=== PATIENT | male | born 1970 | race Caucasian/White ===

== ENCOUNTER 2019-05-29 16:46 | Emergency (ER) | payer MEDICAID ==
[~2019-05-29] VITALS: Ht 185.4 cm; Wt 120.2 kg
[2019-05-29 18:50] VITALS: BP 147/102
[2019-05-29] MEDS ORDERED: HYDROcodone-ACET 10/325MG TAB PO ONE (19:15)
== END 2019-05-29 20:01 | disposition home or self-care (01) ==
LOC: ER 16:46
DX: S60.212A Contusion of left wrist, initial encounter (principal); X50.1XXA Overexertion from prolonged static or awkward postures, initial encounter; Y93.89 Activity, other specified; Y92.89 Other specified places as the place of occurrence of the external cause; Y99.8 Other external cause status
CPT/HCPCS: 73110

== ENCOUNTER 2019-10-14 09:34 | Emergency (ER) | payer MEDICAID ==
[~2019-10-14] VITALS: Ht 185.4 cm; Wt 120.2 kg
[2019-10-14 09:52] VITALS: BP 141/100
[2019-10-14] MEDS ORDERED: FLUORESCEIN SOD 1 MG TEST STRIP OP ONE (11:00)
[2019-10-14] MEDS ORDERED: TETRACAINE HCL 0.5% OPTH(EYE) SOLN 4ML EACHEYE ONE (11:00)
== END 2019-10-14 12:06 | disposition home or self-care (01) ==
LOC: ER 09:34
DX: T15.02XA Foreign body in cornea, left eye, initial encounter (principal); W22.8XXA Striking against or struck by other objects, initial encounter; Y93.89 Activity, other specified; Y92.89 Other specified places as the place of occurrence of the external cause; Y99.8 Other external cause status
CPT/HCPCS: 65222

== ENCOUNTER 2023-03-13 06:08 | Emergency (ER) | payer MEDICAID ==
[~2023-03-13] VITALS: Ht 185.4 cm; Wt 118.0 kg
[2023-03-13 06:20] VITALS: BP 151/99
[2023-03-13 06:38] LABS: Urine Bacteria NONE SEEN /hpf (None Seen); Urine Blood 1+ /uL (Negative); Urine Specific Gravity 1.008 (1.001-1.035); Urine WBC <1 /hpf (0 - 3)
[2023-03-13] MEDS ORDERED: SODIUM CHLORIDE 0.9% 1,000 ML IV ONE (07:00)
[2023-03-13] MEDS ORDERED: ONDANSETRON HCL 4 MG/2 ML VIAL IV ONE (07:00)
[2023-03-13] MEDS ORDERED: KETOROLAC TROMETH 30 MG/ML 1ML VIAL IV ONE (07:00)
[2023-03-13] MEDS ORDERED: SODIUM CHLORIDE 0.9% 1,000 ML IVB ONE (07:00)
[2023-03-13 08:03] LABS: Basophils # (auto) 0.1 10 ^3/uL (0-0.2); Eosinophils # (auto) 0.3 10 ^3/uL (0-0.8); Eosinophils % (auto) 3.7 % (0.0-7.0); Hematocrit 49.8 % (41.0-53.0); Hemoglobin 16.9 g/dL (13.5-17.5); Lymphocytes # (auto) 1.3 10 ^3/uL (0.4-5.4); Mean Corpuscular Hemoglobin 29.2 pg (28.0-32.0); Mean Corpuscular Volume 86.1 fL (80.0-100.0); Monocytes # (auto) 0.3 10 ^3/uL (0-1.3); Monocytes % (auto) 4.1 % (0.0-12.0); Neutrophils # (auto) 6.2 10 ^3/uL (1.6-8.6); Neutrophils % (auto) 75.2 % (37.0-80.0); Nucleated Red Blood Cells % 0.1 %; Red Blood Cells 5.79 10^6/uL (4.5-5.90); White Blood Cell 8.2 10^3/uL (4.4-10.8)
[2023-03-13 09:41] LABS: Albumin 3.4 g/dL (3.4-5.0); Calcium 9.2 mg/dL (8.5-10.1); Potassium 4.2 mmol/L (3.5-5.1)
[2023-03-13 09:43] LABS: BUN/Creatinine Ratio 10.9 (10.0-20.0)
[2023-03-13 09:45] LABS: Bilirubin, Total 0.3 mg/dL (0.2-1.0); Total Protein 7.4 g/dL (6.4-8.2)
== END 2023-03-13 07:50 | disposition left against medical advice (07) ==
LOC: ER 06:08
DX: R10.9 Unspecified abdominal pain (principal); Z87.442 Personal history of urinary calculi
CPT/HCPCS: 36415; 74176; 80053; 81001; 85025

== ENCOUNTER 2024-02-18 07:55 | Emergency (ER) | payer MEDICAID ==
[~2024-02-18] VITALS: Ht 185.4 cm; Wt 127.2 kg
[2024-02-18 08:32] VITALS: BP 186/104; PULSE 104; RESP 20; TEMP 100; O2SAT 99
[2024-02-18] MEDS ORDERED: PRED20TA2 PO (09:19)
[2024-02-18] MEDS ORDERED: IBUP-1455 PO (09:19)
[2024-02-18] MEDS ORDERED: VALA1TAB PO (09:19)
[2024-02-18] MEDS: KETOROLAC TROMETH 60MG/2ML VIAL IM ONE (09:21)
[2024-02-18] MEDS: DexAMETHasone SOD PHOS 10MG/1ML VIAL INJ IM ONE (09:21)
== END 2024-02-18 09:21 | disposition home or self-care (01) ==
LOC: ER 07:55
DX: B02.9 Zoster without complications (principal); Z87.442 Personal history of urinary calculi
CPT/HCPCS: 96372; 99284; J1100; J1885

== ENCOUNTER 2024-02-24 10:11 | Emergency (ER) | payer MEDICAID ==
[~2024-02-24] VITALS: Ht 185.4 cm; Wt 127.4 kg
[~2024-02-24 10:11] MED LIST: IBUP-1455 PO; PRED20TA2 PO; VALA1TAB PO
[2024-02-24 10:42] VITALS: BP 181/110; PULSE 106; RESP 12; TEMP 98.8; O2SAT 97
[2024-02-24] MEDS: KETOROLAC TROMETH 60MG/2ML VIAL IM ONE (11:40)
== END 2024-02-24 11:30 | disposition home or self-care (01) ==
LOC: ER 10:11
DX: B02.9 Zoster without complications (principal); Z87.442 Personal history of urinary calculi
CPT/HCPCS: 96372; 99283; J1885